=== PATIENT | female | born 1965 | race Caucasian/White ===

== ENCOUNTER → 2017-01-03 | Outpatient (CLI) | payer BC, MEDICAID ==
[2017-01-03 09:15] LABS: Basophils % (A) 0 %; CH 31.1; CHCM 32.4; Eosinophils # (A) 0.1 k/uL (0-0.7); Eosinophils % (A) 2 %; HCT 37.7 % (34.0-46.0); HDW 2.16; HGB 12.2 gm/dL (11.4-16.0); Luc # (Auto) 0.05; Luc % (Auto) 2; Lymphocytes # (A) 1.2 k/uL (1.0-4.8); Lymphocytes % (A) 43 %; MCH 31.3 pg (25.0-35.0); MCHC 32.4 g/dL (31.0-37.0); MCV 96.5 fL (80.0-100.0); Mean Platelet Volume 7.1; Monocytes # (A) 0.2 k/uL (0-1.0); Monocytes % (A) 7 %; Neutrophils # (A) 1.4 k/uL (1.3-7.7); Neutrophils % (A) 47 %; RDW 12.8 % (11.5-15.5); WBC 2.9 k/uL (3.8-10.6)
[2017-01-03 10:34] LABS: ALT 34 U/L (9-52); AST 27 U/L (14-36); Alkaline Phosphatase 55 U/L (38-126); Anion Gap 13 mmol/L; Blood Urea Nitrogen 12 mg/dL (7-17); Calcium 9.6 mg/dL (8.4-10.2); Carbon Dioxide 27 mmol/L (22-30); Chloride 106 mmol/L (98-107); Cholesterol 212 mg/dL (<200); Creatine Kinase 35 U/L (30-135); Glucose 77 mg/dL (74-99); HDL Cholesterol 91 mg/dL (40-60); Non-African American GFR(MDRD) >60 (>60 ml/min/1.73 sqM); Potassium 4.7 mmol/L (3.5-5.1); Sodium 146 mmol/L (137-145); Total Bilirubin 0.4 mg/dL (0.2-1.3); Triglycerides 116 mg/dL (<150)
[2017-01-03 14:02] LABS: Hemoglobin A1C 5.6 % (4.2-6.1)
== END | disposition home or self-care (01) ==
LOC: LABWHC1 08:23
PROVIDERS: ATTEND Internal Medicine
DX: Z00.00 Encounter for general adult medical examination without abnormal findings (principal); R00.1 Bradycardia, unspecified; C44.91 Basal cell carcinoma of skin, unspecified
CPT/HCPCS: 36415; 80053; 80061; 82550; 83036; 84439; 84443; 85025

== ENCOUNTER → 2017-01-13 | Outpatient (CLI) | payer MEDICAID ==
--- NOTE | 2017-01-15 13:22 | MM ---
Reason for exam: screening (asymptomatic). Last mammogram was performed 1 year and 7 months ago. History: Patient history of other cancer. Family history of breast cancer in paternal aunt at age 65. Physical Findings: A clinical breast exam by your physician is recommended on an annual basis and results should be correlated with mammographic findings. MG 3D Screening Mammo W/Cad Bilateral CC and MLO view(s) were taken. Prior study comparison: June 19, 2015, bilateral MG 3d diag mammo w/cad [facility]. December 26, 2014, left breast MG diagnostic mammo LT w CAD. The breast tissue is heterogeneously dense. This may lower the sensitivity of mammography. No significant changes when compared with prior studies. ASSESSMENT: Benign, BI-RAD 2 RECOMMENDATION: Routine screening mammogram of both breasts in 1 year.
== END | disposition home or self-care (01) ==
LOC: RADMAMWWP 10:57
PROVIDERS: ATTEND Internal Medicine
DX: Z12.31 Encounter for screening mammogram for malignant neoplasm of breast (principal)
CPT/HCPCS: 77063; G0202

== ENCOUNTER → 2017-03-06 | Outpatient (CLI) | payer MEDICAID | END | disposition home or self-care (01) | LOC: LABWHC1 14:23 | PROVIDERS: ATTEND Internal Medicine Critical Care Medicine | DX: E03.9 Hypothyroidism, unspecified (principal) | CPT/HCPCS: 36415; 84439; 84443 ==

== ENCOUNTER → 2018-02-17 | Outpatient (CLI) | payer MEDICAID ==
[2018-02-17 10:15] LABS: Basophils % (A) 0 %; Eosinophils # (A) 0.1 k/uL (0-0.7); Eosinophils % (A) 2 %; HGB 12.2 gm/dL (11.4-16.0); Lymphocytes # (A) 1.1 k/uL (1.0-4.8); Lymphocytes % (A) 31 %; MCH 30.6 pg (25.0-35.0); MCV 95.5 fL (80.0-100.0); Mean Platelet Volume 6.9; Monocytes # (A) 0.2 k/uL (0-1.0); Monocytes % (A) 6 %; Neutrophils # (A) 2.1 k/uL (1.3-7.7); Neutrophils % (A) 57 %; Platelet Count 207 k/uL (150-450); RBC 3.99 m/uL (3.80-5.40); RDW 13.1 % (11.5-15.5); WBC 3.7 k/uL (3.8-10.6)
[2018-02-17 11:59] LABS: ALT 31 U/L (9-52); AST 26 U/L (14-36); Albumin 4.6 g/dL (3.5-5.0); Alkaline Phosphatase 51 U/L (38-126); Anion Gap 8 mmol/L; Blood Urea Nitrogen 16 mg/dL (7-17); Carbon Dioxide 29 mmol/L (22-30); Chloride 104 mmol/L (98-107); Cholesterol 252 mg/dL (<200); Glucose 88 mg/dL (74-99); HDL Cholesterol 100 mg/dL (40-60); LDL Cholesterol,Calculated 139 mg/dL (0-99); Potassium 4.5 mmol/L (3.5-5.1); Sodium 141 mmol/L (137-145); Total Bilirubin 0.6 mg/dL (0.2-1.3); Total Protein 7.5 g/dL (6.3-8.2); Triglycerides 66 mg/dL (<150)
== END | disposition home or self-care (01) ==
LOC: LABWHC1 09:23
PROVIDERS: ATTEND Internal Medicine Critical Care Medicine
DX: Z00.00 Encounter for general adult medical examination without abnormal findings (principal)
CPT/HCPCS: 36415; 80053; 80061; 82306; 84439; 84443; 85025

== ENCOUNTER → 2018-03-23 | Outpatient (CLI) | payer MEDICAID ==
--- NOTE | 2018-03-23 09:51 | US ---
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 Transabdominal sonographic images of the pelvis were acquir ed. Date of LMP: 38 EXAM MEASUREMENTS: Uterus: surgically removed Endometrial Stripe: surgically removed Right Ovary: not well seen Left Ovary: 3.1 x 1.7 x 1.6 cm 1. Right Ovary: partial remnant may be seen on image #[id number], but not seen in TR view due to bowel per istalsing. 2. Left Ovary: simple follicular cyst = 1.7 x 1.1 x 1.3cm ; small calcifications seen in adjacent ov cassandra tissue Spectral, color and waveform Doppler imaging shows good arterial and venous flow within the left ov shubham; there is no evidence for ovarian torsion. 3. Bilateral Adnexa: wnl; 4. Posterior cul-de-sac: wnl IMPRESSION: 1. Postoperative changes. 2. Follicular cyst left ovary with areas of calcification. Consider follow-up in 6 weeks.
--- NOTE | 2018-03-24 10:44 | MM ---
Reason for exam: screening (asymptomatic). Last mammogram was performed 1 year and 2 months ago. History: Patient history of other cancer. Family history of breast cancer in paternal aunt at age 65. Physical Findings: A clinical breast exam by your physician is recommended on an annual basis and results should be correlated with mammographic findings. MG 3D Screening Mammo W/Cad Bilateral CC and MLO view(s) were taken. Prior study comparison: January 13, 2017, bilateral MG 3d screening mammo w/cad. June 19, 2015, bilateral MG 3d diag mammo w/cad [facility]. The breast tissue is heterogeneously dense. This may lower the sensitivity of mammography. There is no discrete abnormality. ASSESSMENT: Negative, BI-RAD 1 RECOMMENDATION: Routine screening mammogram of both breasts in 1 year.
== END ==
LOC: RADMAMWWP 07:52
PROVIDERS: ATTEND Internal Medicine Critical Care Medicine
DX: Z12.31 Encounter for screening mammogram for malignant neoplasm of breast (principal); N83.02 Follicular cyst of left ovary; Z98.890 Other specified postprocedural states
CPT/HCPCS: 76830; 77063; 77067

== ENCOUNTER → 2019-04-19 | Outpatient (CLI) | payer MEDICAID ==
[2019-04-19 09:35] LABS: HGB 12.7 gm/dL (11.4-16.0); MCH 31.8 pg (25.0-35.0); MCHC 31.8 g/dL (31.0-37.0); Platelet Count 226 k/uL (150-450); RDW 12.5 % (11.5-15.5); WBC 3.2 k/uL (3.8-10.6)
[2019-04-19 09:48] LABS: ALT 11 U/L (9-52); AST 22 U/L (14-36); African American GFR (CKD) >90 (>60 ml/min/1.73 sqM); Albumin 4.6 g/dL (3.5-5.0); Alkaline Phosphatase 52 U/L (38-126); Anion Gap 8 mmol/L; Blood Urea Nitrogen 16 mg/dL (7-17); Carbon Dioxide 30 mmol/L (22-30); Chloride 106 mmol/L (98-107); Cholesterol 237 mg/dL (<200); Glucose 83 mg/dL (74-99); HDL Cholesterol 95 mg/dL (40-60); LDL Cholesterol,Calculated 115 mg/dL (0-99); Potassium 4.8 mmol/L (3.5-5.1); Sodium 144 mmol/L (137-145); Total Bilirubin 0.4 mg/dL (0.2-1.3); Total Protein 7.7 g/dL (6.3-8.2); Triglycerides 136 mg/dL (<150)
[2019-04-19 10:04] LABS: T4, Free (Free Thyroxine) 0.59 ng/dL (0.78-2.19)
[2019-04-19 18:59] LABS: Vitamin D 25 Hydroxy 32.8 ng/mL (30.0-100.0)
[2019-04-19 20:43] LABS: Hepatitis C IgG Antibody Non-Reactive (Non-Reactive)
--- NOTE | 2019-04-21 11:17 | MM ---
Reason for exam: screening (asymptomatic). Last mammogram was performed 1 year and 1 month ago. History: Patient history of other cancer. Family history of breast cancer in paternal aunt at age 65. Physical Findings: A clinical breast exam by your physician is recommended on an annual basis and results should be correlated with mammographic findings. MG 3D Screening Mammo W/Cad Bilateral CC and MLO view(s) were taken. Prior study comparison: March 23, 2018, bilateral MG 3d screening mammo w/cad. January 13, 2017, bilateral MG 3d screening mammo w/cad. The breast tissue is heterogeneously dense. This may lower the sensitivity of mammography. Stable superior asymmetric density on the right. No significant changes when compared with prior studies. ASSESSMENT: Negative, BI-RAD 1 RECOMMENDATION: Routine screening mammogram of both breasts in 1 year.
== END | disposition home or self-care (01) ==
LOC: RADMAMWWP 08:10
PROVIDERS: ATTEND Internal Medicine Critical Care Medicine
DX: Z12.31 Encounter for screening mammogram for malignant neoplasm of breast (principal); Z00.00 Encounter for general adult medical examination without abnormal findings
CPT/HCPCS: 77063; 77067; 80053; 80061; 82306; 84439; 84443; 85027; 86803

== ENCOUNTER → 2020-04-26 | Outpatient (CLI) | payer MEDICAID ==
[2020-04-26 08:56] LABS: Basophils % (A) 1 %; Eosinophils # (A) 0.1 k/uL (0-0.7); Eosinophils % (A) 2 %; HCT 41.3 % (34.0-46.0); HGB 13.5 gm/dL (11.4-16.0); Lymphocytes # (A) 1.4 k/uL (1.0-4.8); Lymphocytes % (A) 31 %; MCH 32.2 pg (25.0-35.0); MCHC 32.6 g/dL (31.0-37.0); MCV 98.9 fL (80.0-100.0); Mean Platelet Volume 7.5; Monocytes # (A) 0.3 k/uL (0-1.0); Monocytes % (A) 6 %; Neutrophils # (A) 2.6 k/uL (1.3-7.7); Neutrophils % (A) 59 %; Platelet Count 240 k/uL (150-450); RBC 4.18 m/uL (3.80-5.40); RDW 12.2 % (11.5-15.5); WBC 4.4 k/uL (3.8-10.6)
[2020-04-26 18:43] LABS: African American GFR (CKD) 95.5 (60.0-200.0); Albumin 4.6 g/dL (3.80-4.90); Albumin/Globulin Ratio 1.84 (1.60-3.17); Anion Gap 11.2 mmol/L (4.00-12.00); BUN/Creat Ratio 18.75 Ratio (12.00-20.00); Carbon Dioxide 25.8 mmol/L (21.6-31.8); Chol/HDL Ratio 2.44; Globulin 2.5 g/dL (1.6-3.3); Magnesium 1.9 mg/dL (1.5-2.4); Non-African American GFR(CKD) 82.4 (60.0-200.0); Potassium 4.8 mmol/L (3.5-5.5); Total Bilirubin 0.8 mg/dL (0.2-1.2); Total Protein 7.1 g/dL (6.2-8.2)
== END | disposition home or self-care (01) ==
LOC: LABWHC1 07:44
PROVIDERS: ATTEND Internal Medicine Critical Care Medicine
DX: Z00.00 Encounter for general adult medical examination without abnormal findings (principal)
CPT/HCPCS: 36415; 80053; 80061; 82306; 82378; 83690; 83735; 84439; 84443; 85025

== ENCOUNTER → 2020-06-27 | Outpatient (CLI) | payer MEDICAID ==
--- NOTE | 2020-06-28 11:53 | MM ---
Reason for exam: screening (asymptomatic). Last mammogram was performed 1 year and 2 months ago. History: Patient history of other cancer. Family history of breast cancer in paternal aunt at age 65. Physical Findings: A clinical breast exam by your physician is recommended on an annual basis and results should be correlated with mammographic findings. MG 3D Screening Mammo W/Cad Bilateral CC and MLO view(s) were taken. Prior study comparison: April 19, 2019, bilateral MG 3d screening mammo w/cad. March 23, 2018, bilateral MG 3d screening mammo w/cad. The breast tissue is heterogeneously dense. This may lower the sensitivity of mammography. There is no discrete abnormality. No significant changes when compared with prior studies. ASSESSMENT: Negative, BI-RAD 1 RECOMMENDATION: Routine screening mammogram of both breasts in 1 year.
== END | disposition home or self-care (01) ==
LOC: RADMAMWWP 14:54
PROVIDERS: ATTEND Internal Medicine Critical Care Medicine
DX: Z12.31 Encounter for screening mammogram for malignant neoplasm of breast (principal)
CPT/HCPCS: 77063; 77067

== ENCOUNTER → 2021-07-09 | Outpatient (CLI) | payer MEDICAID ==
[2021-07-09 10:26] LABS: Basophils # (A) 0.1 k/uL (0-0.2); Basophils % (A) 1 %; Eosinophils # (A) 0.1 k/uL (0-0.7); Eosinophils % (A) 3 %; HCT 40.8 % (34.0-46.0); HGB 12.9 gm/dL (11.4-16.0); Lymphocytes # (A) 1.4 k/uL (1.0-4.8); Lymphocytes % (A) 34 %; MCH 31.5 pg (25.0-35.0); MCHC 31.7 g/dL (31.0-37.0); MCV 99.3 fL (80.0-100.0); Mean Platelet Volume 7.8; Monocytes # (A) 0.2 k/uL (0-1.0); Monocytes % (A) 6 %; Neutrophils # (A) 2.1 k/uL (1.3-7.7); Neutrophils % (A) 52 %; Platelet Count 242 k/uL (150-450); RBC 4.11 m/uL (3.80-5.40)
[2021-07-09 10:47] LABS: ALT 10 U/L (4-34); AST 23 U/L (14-36); African American GFR (CKD) 87 (>60 ml/min/1.73 sqM); Albumin 4.4 g/dL (3.5-5.0); Albumin/Globulin Ratio 1.4; Alkaline Phosphatase 54 U/L (38-126); Anion Gap 9 mmol/L; Blood Urea Nitrogen 17 mg/dL (7-17); Carbon Dioxide 27 mmol/L (22-30); Chloride 105 mmol/L (98-107); Globulin 3.2 g/dL; Glucose 89 mg/dL (74-99); Non-African American GFR(CKD) 76 (>60 ml/min/1.73 sqM); Potassium 4.7 mmol/L (3.5-5.1); Sodium 141 mmol/L (137-145); Total Bilirubin 0.7 mg/dL (0.2-1.3); Total Protein 7.6 g/dL (6.3-8.2)
[2021-07-09 20:06] LABS: Chol/HDL Ratio 2.59 Ratio; LDL Cholesterol,Calculated 144.7 mg/dL (0.0-131.0); VLDL Calculation 14.34 mg/dL (5.00-40.00)
--- NOTE | 2021-07-10 14:35 | MM ---
Reason for exam: screening (asymptomatic). Last mammogram was performed 1 year ago. History: Patient history of other cancer. Family history of breast cancer in paternal aunt at age 65 and breast cancer in paternal aunt. Physical Findings: A clinical breast exam by your physician is recommended on an annual basis and results should be correlated with mammographic findings. MG 3D Screening Mammo W/Cad Bilateral CC and MLO view(s) were taken. Prior study comparison: June 27, 2020, bilateral MG 3d screening mammo w/cad. April 19, 2019, bilateral MG 3d screening mammo w/cad. There are scattered fibroglandular densities. No significant changes when compared with prior studies. ASSESSMENT: Negative, BI-RAD 1 RECOMMENDATION: Routine screening mammogram of both breasts in 1 year.
== END | disposition home or self-care (01) ==
LOC: RADMAMWWP 08:57
PROVIDERS: ATTEND Internal Medicine Critical Care Medicine
DX: Z12.31 Encounter for screening mammogram for malignant neoplasm of breast (principal); Z80.3 Family history of malignant neoplasm of breast
CPT/HCPCS: 36415; 77063; 77067; 80053; 80061; 82306; 84443; 85025

== ENCOUNTER → 2021-11-22 | Outpatient (CLI) | payer MEDICAID ==
[2021-11-22 18:27] LABS: ALT 15 U/L (8-44); AST 32 U/L (13-35); Chol/HDL Ratio 1.87 Ratio; Creatine Kinase 90 U/L (26-186); LDL Cholesterol,Calculated 83.5 mg/dL (0.0-131.0)
== END | disposition home or self-care (01) ==
LOC: LABWHC1 10:46
PROVIDERS: ATTEND Internal Medicine Critical Care Medicine
DX: E78.2 Mixed hyperlipidemia (principal)
CPT/HCPCS: 36415; 80061; 82550; 84450; 84460

== ENCOUNTER → 2022-07-10 | Outpatient (CLI) | payer MEDICAID ==
--- NOTE | 2022-07-11 16:37 | MM ---
Reason for Exam: Screening (asymptomatic). Last screening mammogram was performed 12 month(s) ago. Patient History: Menarche at age 14. First Full-Term at age 26. Right ovary removed at age 37. Hysterectomy at age 37. Other cancer. Paternal aunt had breast cancer, age 65. Paternal aunt had breast cancer. Risk Values: Sirena 5 year model risk: 1.4%. NCI Lifetime model risk: 7.8%. Prior Study Comparison: 04/19/2019 Bilateral Screening Mammogram, [facility]. 06/27/2020 Bilateral Screening Mammogram, [facility]. 07/09/2021 Bilateral Screening Mammogram, [facility]. Tissue Density: The breast tissue is heterogeneously dense. This may lower the sensitivity of mammography. Findings: Analyzed By CAD. Pattern appears symmetrical and stable. No significant interval change is evident. No suspicious groups of microcalcifications, spiculated or lobular masses, architectural distortion or other secondary signs of malignancy are mammographically apparent. Overall Assessment: Benign, BI-RAD 2 Management: Screening Mammogram of both breasts in 1 year. A negative mammogram report should not preclude additional follow up of suspicious palpable abnormalities. Patient should continue monthly self breast exam. A clinical breast exam by your physician is recommended on an annual basis and results should be correlated with mammographic findings. Electronically signed and approved by: Germain Guerrero D.O. Radiologis
== END | disposition home or self-care (01) ==
LOC: RADMAMWWP 15:51
PROVIDERS: ATTEND Internal Medicine Critical Care Medicine
DX: Z12.31 Encounter for screening mammogram for malignant neoplasm of breast (principal); Z80.3 Family history of malignant neoplasm of breast
CPT/HCPCS: 77063; 77067

== ENCOUNTER → 2022-07-18 | Outpatient (CLI) | payer MEDICAID ==
[2022-07-18 18:12] LABS: Basophils # (A) 0.03 X 10*3/uL (0.00-0.10); Basophils % (A) 0.4 %; Eosinophils # (A) 0.06 X 10*3/uL (0.04-0.35); Eosinophils % (A) 0.8 %; HCT 40.5 % (37.2-46.3); HGB 12.5 g/dL (12.0-15.0); Immature Grans, Automated 0.5 %; Lymphocytes % (A) 22.9 %; MCH 29.7 pg (27.0-32.0); MCHC 30.9 g/dL (32.0-37.0); MCV 96.2 fL (80.0-97.0); Mean Platelet Volume 10.9 fL (9.5-12.2); Monocytes # (A) 0.43 X 10*3/uL (0.20-1.00); Monocytes % (A) 5.8 %; NRBC Per 100 WBC 0 /100 WBCS (0.0-0.0); Neutrophils # (A) 5.15 X 10*3/uL (1.80-7.70); Neutrophils % (A) 69.6 %; Platelet Count 221 X 10*3/uL (140-440); RBC 4.21 X 10*6/uL (4.10-5.20); RDW 13.2 % (11.5-14.5); WBC 7.41 X 10*3/uL (4.50-10.00)
[2022-07-18 18:41] LABS: ALT 16 U/L (8-44); AST 23 U/L (13-35); African American GFR (CKD) 81.7 (60.0-200.0); Albumin 4.9 g/dL (3.8-4.9); Albumin/Globulin Ratio 2.13 (1.60-3.17); Alkaline Phosphatase 59 U/L (41-126); Amylase 56 U/L (23-121); BUN/Creat Ratio 14.89 Ratio (12.00-20.00); Blood Urea Nitrogen 13.4 mg/dL (9.0-27.0); Calcium 10.1 mg/dL (8.7-10.3); Carbon Dioxide 25.7 mmol/L (20.0-27.5); Chloride 106 mmol/L (96-109); Globulin 2.3 g/dL (1.6-3.3); Glucose 82 mg/dL (70-110); LDL Cholesterol,Calculated 108.2 mg/dL (0.0-131.0); Lipase 44 U/L (14-63); Non-African American GFR(CKD) 70.5 (60.0-200.0); Potassium 4.6 mmol/L (3.5-5.5); Sodium 144 mmol/L (135-145); Total Protein 7.2 g/dL (6.2-8.2); VLDL Calculation 15.82 mg/dL (5.00-40.00)
== END | disposition home or self-care (01) ==
LOC: LABWHC1 11:08
PROVIDERS: ATTEND Internal Medicine Critical Care Medicine
DX: Z01.812 Encounter for preprocedural laboratory examination (principal); E78.2 Mixed hyperlipidemia; E55.9 Vitamin D deficiency, unspecified
CPT/HCPCS: 36415; 80053; 80061; 82150; 82306; 82378; 83690; 84439; 84443; 85025

== ENCOUNTER → 2022-12-26 | Outpatient (CLI) | payer MEDICAID ==
--- NOTE | 2022-12-27 08:14 | CT ---
EXAMINATION TYPE: CT abdomen pelvis w con CT DLP: 426 mGycm, Automated exposure control for dose reduction was used. DATE OF EXAM: 12/26/2022 5:29 PM COMPARISON: None CLINICAL INDICATION:Female, 57 years old with history of R10.84, R11.0; Right side abdominal pain x 6 months TECHNIQUE: Standard CT of the abdomen and pelvis following the administration of 100 cc of Isovue 3 00 IV contrast material and oral contrast. Coronal and sagittal reformats were performed. FINDINGS: LOWER CHEST: Unremarkable ABDOMEN LIVER: Diffusely hypoattenuating parenchyma. No focal lesion. GALLBLADDER AND BILE DUCTS: Unremarkable. PANCREAS: Unremarkable. SPLEEN: Unremarkable. ADRENAL GLANDS: Unremarkable. KIDNEYS AND URETERS: No evidence of hydronephrosis or renal calculus. The kidneys enhance symmetrical ly without suspicious focal lesion. Contrast is demonstrated within both collecting systems on the de layed phase. PELVIS BLADDER: Under distended, limiting evaluation. REPRODUCTIVE: The uterus is surgically absent. ABDOMEN & PELVIS STOMACH AND BOWEL: Stomach and duodenum are unremarkable. Colonic diverticulosis of the descending an d sigmoid colon without evidence for acute diverticulitis. The appendix is within normal limits. Ente linda contrast reaches the distal small bowel. No focal bowel wall thickening or surrounding inflammato ry changes. No evidence of bowel obstruction. PERITONEUM: No evidence of pneumoperitoneum or free fluid. VASCULATURE: No evidence of aortic aneurysm. Multiple pelvic phleboliths. MUSCULOSKELETAL: No acute osseous abnormalities. Mild disc degeneration changes are present throughou t the thoracolumbar spine. This is most pronounced at L5-S1. LYMPH NODES: No evidence for lymphadenopathy. SOFT TISSUE/ABDOMINAL WALL: Unremarkable IMPRESSION: 1. No acute abdominal/pelvic process. 2. Colonic diverticulosis without evidence for acute diverticulitis. 3. Hepatic steatosis.
== END | disposition home or self-care (01) ==
LOC: RADCTMAIN 14:56
PROVIDERS: ATTEND Internal Medicine Critical Care Medicine
DX: K76.0 Fatty (change of) liver, not elsewhere classified (principal); K57.30 Diverticulosis of large intestine without perforation or abscess without bleeding; R10.84 Generalized abdominal pain
CPT/HCPCS: 74177; Q9967

== ENCOUNTER → 2023-07-31 | Outpatient (CLI) | payer MEDICAID ==
[2023-07-31 11:21] LABS: MCH 30.8 pg (27.0-32.0); MCHC 32.5 g/dL (32.0-37.0); MCV 94.8 FL (80.0-97.0); Mean Platelet Volume 10.8 FL (9.5-12.2); NRBC Per 100 WBC 0 X 10*3/uL (0.00-0.01); Platelet Count 259 X 10*3/uL (140-440); RBC 4.22 X 10*6/uL (4.10-5.20); RDW 12.8 % (11.5-14.5); WBC 3.93 X 10*3/uL (4.50-10.00)
[2023-07-31 11:38] LABS: BUN/Creat Ratio 15.88 Ratio (12.00-20.00); Blood Urea Nitrogen 12.7 mg/dL (9.0-27.0); Chloride 106 mmol/L (96-109); Chol/HDL Ratio 2.99 Ratio; Glucose 92 mg/dL (70-110); LDL Cholesterol,Calculated 145.1 mg/dL (0.0-131.0); Potassium 4.8 mmol/L (3.5-5.5); Sodium 145 mmol/L (135-145); VLDL Calculation 17.38 mg/dL (5.00-40.00)
[2023-07-31 11:39] LABS: ALT 17 U/L (8-44); AST 26 U/L (13-35); Albumin 4.5 g/dL (3.8-4.9); Albumin/Globulin Ratio 1.73 Ratio (1.60-3.17); Alkaline Phosphatase 61 U/L (41-126); Calcium 10.2 mg/dL (8.7-10.3); Carbon Dioxide 26.9 mmol/L (21.6-31.8); Globulin 2.6 g/dL (1.6-3.3); Total Bilirubin 0.4 mg/dL (0.3-1.2); Total Protein 7.1 g/dL (6.2-8.2)
--- NOTE | 2023-08-01 20:01 | MM ---
Reason for Exam: Screening (asymptomatic). Last mammogram was performed 1 year(s) and 1 month(s) ago. Patient History: Menarche at age 14. First Full-Term at age 26. Right ovary removed at age 37. Hysterectomy at age 37. Other cancer. Paternal aunt had breast cancer, age 65. Paternal aunt had breast cancer. Risk Values: Sirena 5 year model risk: 1.4%. NCI Lifetime model risk: 7.6%. Prior Study Comparison: 06/27/2020 Bilateral Screening Mammogram, [facility]. 07/09/2021 Bilateral Screening Mammogram, [facility]. 07/10/2022 Bilateral MG 3D screening mammo w/cad, [facility]. Tissue Density: There are scattered fibroglandular densities. Findings: Analyzed By CAD. Unchanged asymmetric density superior right breast. There is no suspicious group of microcalcifications or new suspicious mass in either breast. Overall Assessment: Benign, BI-RAD 2 Management: Screening Mammogram of both breasts in 1 year. . Patient should continue monthly self-breast exams. A clinical breast exam by your physician is recommended on an annual basis. This exam should not preclude additional follow-up of suspicious palpable abnormalities. Note on Sirena scores and lifetime risk: 1. A Sirena score greater than 3% is considered moderate risk. If this is the case, consider specialist referral to assess eligibility for a risk reducing agent. 2. If overall lifetime risk for the development of breast cancer is 20% or higher, the patient may qualify for future screening with alternating mammogram and breast MRI. Electronically signed and approved by: Sorin Carranza M.D. Radiologist
== END | disposition home or self-care (01) ==
LOC: RADMAMWWP 07:21
PROVIDERS: ATTEND Internal Medicine Critical Care Medicine
DX: Z12.31 Encounter for screening mammogram for malignant neoplasm of breast (principal); Z01.89 Encounter for other specified special examinations; R92.323 Mammographic fibroglandular density, bilateral breasts; Z90.710 Acquired absence of both cervix and uterus; Z80.3 Family history of malignant neoplasm of breast
CPT/HCPCS: 77063; 77067; 80053; 80061; 85027

== ENCOUNTER → 2023-11-13 | Outpatient (CLI) | payer MEDICAID ==
--- NOTE | 2023-11-13 11:59 | BD ---
EXAMINATION TYPE: Axial Bone Density DATE OF EXAM: 11/13/2023 CLINICAL HISTORY: 58 years old Female. ICD-10 CODE: M85.88 OTH DISRD OF BONE DENSITY AND STRUCTURE, OT Height: 66 Weight: 139.2 FRAX RISK QUESTIONS: Alcohol (3 or more units per day): no Family History (Parent hip fracture): no Glucocorticoids (More than 3mos): no (Ex: prednisone, prednisolone, methylprednisolone, dexamethasone, and hydrocortisone). History of Fracture in Adulthood: no Secondary Osteoporosis: 1. Type 1 Diabetes: no 2. Hyperthyroidism: no 3. Menopause before 45: no 4. Malnutrition: no 5. Chronic liver disease: no Rheumatoid Arthritis: no Current Tobacco Use: no RISK FACTORS HISTORY OF: Hip Fracture (Right/Left): no Spine Fracture: no History of Wrist Fracture: no Surgery to Spine/Hip(right/left)/Wrist (right/left): no MEDICATIONS: Thyroid Medications:no Osteoporosis Medications: no EXAM MEASUREMENTS: Bone mineral densitometry was performed using the [employer] System. Bone mineral density as measured about the Lumbar spine is: ----- L1-L4(G/cm2): 1.210 T Score Values are as follows: ----- L1: -0.5 ----- L2: -0.4 ----- L3: 0.2 ----- L4: 1.2 ----- L1-L4: 0.3 Z Score Values are as follows: ----- L1: 0.8 ----- L2: 0.9 ----- L3: 1.5 ----- L4: 2.5 ----- L1-L4: 1.5 Bone mineral density about the R hip (g/cm2): 1.037 Bone mineral density about the L hip (g/cm2): 1.000 T Score values are as follows: -----R Neck: -0.1 -----L Neck: -0.6 -----R Total: 0.2 -----L Total: -0.1 Z Score values are as follows: -----R Neck: 1.2 -----L Neck: 0.7 -----R Total: 1.2 -----L Total: 0.9 Bone mineral density has: decreased 9.0 % since study of: 2013 FRAX%s: The graph provided illustrates a 6.2% chance for a major osteoporotic fx and a 0.2% chance fo r the hips probability for fx in 10 years time. IMPRESSION: Normal (Values between +1 and -1 indicate normal bone mass). Consider repeating this study in 5 year s or sooner if there is some new clinical indication. NOTE: T-SCORE=SD OF THE YOUNG ADULT MEAN.
== END | disposition home or self-care (01) ==
LOC: RADBDWWP 10:11
PROVIDERS: ATTEND Internal Medicine Critical Care Medicine
DX: M85.88 Other specified disorders of bone density and structure, other site (principal)
CPT/HCPCS: 77080

== ENCOUNTER → 2023-12-23 | Day surgery (SDC) | payer MEDICAID ==
[2023-12-22 09:56] VITALS: BMI 22.1
[~2023-12-23] MED LIST: LIDOCAINE 1% INJ 10MG/ML (20 ML MDV) ONE; PROPOFOL 10 MG/ML 20 ML VIAL IV ONE; fentaNYL (PF) 50 MCG/ML 2 ML AMP ONE
[2023-12-23 06:44] VITALS: TEMP 97.1
[2023-12-23] MEDS: IV FLUID CONTINUATION 1,000 ML IV ONE (06:45)
[2023-12-23] MEDS: LACTATED RINGERS 1,000 ML IV SCH (06:46)
[2023-12-23] MEDS: LIDOCAINE 1% (10MG/ML) FOR IV START INTRADERMA STA (06:47)
--- NOTE | 2023-12-23 07:13 | P.PCN ---
Date of Procedure: 12/23/23 Procedure(s) Performed: Brief history: Patient is a pleasant 58-year-old white female scheduled for an elective upper endoscopy as well as colonoscopy as a part of evaluation of GERD/screening for colon cancer Procedure performed: Esophagogastroduodenoscopy with biopsy Colonoscopy Preoperative diagnosis: GERD Screening for colon cancer [place]est[place] [facility] [place]: After informed consent was obtained from the patient was brought into the endoscopy unit and IV sedation was administered by anesthesia under continuous monitoring. Initially upper endoscopy was done. The Olympus GF 160 video endoscope was inserted inserted into the mouth and esophagus intubated without any difficulty and was gradually advanced into the stomach and duodenum and carefully examined. The bulb and second part of the duodenum appeared normal. The scope was then withdrawn into the stomach adequately insufflated with air and upon careful examination the antrum had mild anemia as of edema consistent with gastritis and biopsies were done from this area. Mucosa of the body, cardia and fundus appeared normal. The scope was then withdrawn into the esophagus. The GE junction was located at 42 cm to the incisors. It appeared irregular with a 3 mm tongues of Titus's appearing mucosa just proximal to the GE junction that was biopsied.. Rest of the esophagus appeared normal. Patient tolerated the procedure well. At this time the patient continued to remain sedation. Initial digital rectal examination was normal. Olympus CF 160 video colonoscope was then inserted into the rectum and gradually advanced to the cecum without any difficulty. Careful examination was performed as the scope was gradually being withdrawn. The prep was excellent. The cecum, ascending colon, transverse colon, descending colon, sigmoid colon and rectum appeared normal. Retroflexion was performed in the rectum and no lesions were noted. Scattered sigmoid diverticulosis. Patient tolerated the procedure well. Impression: 1. Upper endoscopy revealed mild antral gastritis and short segment Titus's esophagus 2. Colonoscopy revealed scattered sigmoid diverticulosis but no evidence of colorectal neoplasia Recommendations: Findings of this examination were discussed with the patient as well as as well as her family. She was advised to follow the biopsy results. The biopsy confirms the presence of Titus's esophagus, recommend repeat upper endoscopy every 3 years.
[2023-12-23 07:20] VITALS: RESP 14
[2023-12-23 07:38] VITALS: BP 157/77; PULSE 50
== END ==
LOC: ORWHC2ENDO 05:58
PROVIDERS: ATTEND Internal Medicine Gastroenterology
DX: Z12.11 Encounter for screening for malignant neoplasm of colon (principal); K29.50 Unspecified chronic gastritis without bleeding; K57.30 Diverticulosis of large intestine without perforation or abscess without bleeding; K22.70 Barrett's esophagus without dysplasia; K21.9 Gastro-esophageal reflux disease without esophagitis; I10 Essential (primary) hypertension; E78.5 Hyperlipidemia, unspecified; Z79.899 Other long term (current) drug therapy; Z88.0 Allergy status to penicillin
CPT/HCPCS: 88305; 45378; 43239; J2001; J3010; J2704

== ENCOUNTER → 2024-08-10 | Outpatient (CLI) | payer MEDICAID ==
[2024-08-10 10:12] LABS: Basophils # (A) 0.05 X 10*3/uL (0.00-0.10); Basophils % (A) 1.4 %; Eosinophils # (A) 0.11 X 10*3/uL (0.04-0.35); Eosinophils % (A) 3.1 %; HCT 40.1 % (37.2-46.3); HGB 12.9 g/dL (12.0-15.0); Lymphocytes # (A) 1.42 X 10*3/uL (0.90-5.00); Lymphocytes % (A) 40.1 %; MCH 30.1 pg (27.0-32.0); MCHC 32.2 g/dL (32.0-37.0); MCV 93.7 FL (80.0-97.0); Mean Platelet Volume 10.7 FL (9.5-12.2); Monocytes # (A) 0.35 X 10*3/uL (0.20-1.00); Monocytes % (A) 9.9 %; NRBC Per 100 WBC 0 X 10*3/uL (0.00-0.01); Neutrophils % (A) 45.2 %; Platelet Count 240 X 10*3/uL (140-440); RBC 4.28 X 10*6/uL (4.10-5.20); RDW 13.2 % (11.5-14.5); WBC 3.54 X 10*3/uL (4.50-10.00)
[2024-08-10 10:46] LABS: ALT 21 U/L (8-44); AST 26 U/L (13-35); Albumin 4.7 g/dL (3.8-4.9); Albumin/Globulin Ratio 1.81 Ratio (1.60-3.17); Alkaline Phosphatase 71 U/L (41-126); Carbon Dioxide 27.7 mmol/L (21.6-31.8); Chloride 105 mmol/L (96-109); Chol/HDL Ratio 1.99 Ratio; Globulin 2.6 g/dL (1.6-3.3); Glucose 87 mg/dL (70-110); LDL Cholesterol,Calculated 77.9 mg/dL (0.0-131.0); Potassium 4.6 mmol/L (3.5-5.5); Sodium 143 mmol/L (135-145); T4, Free (Free Thyroxine) 0.88 ng/dL (0.80-1.80); Total Bilirubin 0.4 mg/dL (0.3-1.2); Total Protein 7.3 g/dL (6.2-8.2)
== END | disposition home or self-care (01) ==
LOC: LABWHC1 07:09
PROVIDERS: ATTEND Internal Medicine Critical Care Medicine
DX: Z00.00 Encounter for general adult medical examination without abnormal findings (principal)
CPT/HCPCS: 36415; 80053; 80061; 82306; 84439; 84443; 85025

== ENCOUNTER → 2024-10-08 | Outpatient (CLI) | payer MEDICAID ==
--- NOTE | 2024-10-08 15:06 | MM ---
Reason for Exam: Screening (asymptomatic). Last mammogram was performed 1 year(s) and 2 month(s) ago. Patient History: Menarche at age 14. First Full-Term at age 26. Right ovary removed at age 37. Hysterectomy at age 37. Other cancer. Patient used Hormonal Contraceptives for 15 years. Paternal aunt had breast cancer, age 65. Paternal aunt had breast cancer. Risk Values: Sirena 5 year model risk: 1.5%. NCI Lifetime model risk: 7.4%. Prior Study Comparison: 07/09/2021 Bilateral Screening Mammogram, [facility]. 07/10/2022 Bilateral MG 3D screening mammo w/cad, [facility]. 07/31/2023 Bilateral MG 3D screening mammo w/cad, [facility]. Tissue Density: The breasts are heterogeneously dense, which may obscure small masses. Findings: Analyzed By CAD. There is no suspicious group of microcalcifications or new suspicious mass in either breast. Stable asymmetric density in the upper inner margin of the right breast. Overall Assessment: Benign, BI-RAD 2 Management: Screening Mammogram of both breasts in 1 year. . Patient should continue monthly self-breast exams. A clinical breast exam by your physician is recommended on an annual basis. This exam should not preclude additional follow-up of suspicious palpable abnormalities. Note on Sirena scores and lifetime risk: 1. A Sirena score greater than 3% is considered moderate risk. If this is the case, consider specialist referral to assess eligibility for a risk reducing agent. 2. If overall lifetime risk for the development of breast cancer is 20% or higher, the patient may qualify for future screening with alternating mammogram and breast MRI. [facility], , 10/08/2024 3:03 PM. Electronically signed and approved by: Klever Doherty M.D. Radiologis
== END | disposition home or self-care (01) ==
LOC: RADMAMWWP 14:32
PROVIDERS: ATTEND Internal Medicine Critical Care Medicine
DX: Z12.31 Encounter for screening mammogram for malignant neoplasm of breast (principal); R92.333 Mammographic heterogeneous density, bilateral breasts; Z80.3 Family history of malignant neoplasm of breast; Z92.0 Personal history of contraception
CPT/HCPCS: 77063; 77067